=== PATIENT | male | born 1985 | race Two or more races ===

== ENCOUNTER 2017-09-07 18:14 | Emergency (ER) | payer MEDICAID ==
[~2017-09-07] VITALS: Ht 193 cm; Wt 225.0 kg
[2017-09-07 23:35] VITALS: BP 126/93
== END 2017-09-08 00:04 | disposition home or self-care (01) ==
LOC: ER 18:14
DX: I83.92 Asymptomatic varicose veins of left lower extremity (principal); E66.01 Morbid (severe) obesity due to excess calories; Z68.44 Body mass index [BMI] 60.0-69.9, adult
CPT/HCPCS: 93971